=== PATIENT | male | born 1960 | race Caucasian/White ===

== ENCOUNTER 2022-04-04 06:18 | Observation (INO) ==
[~2022-04-04 06:18] MED LIST: ALVIMOPAN 12 MG CAPSULE PO ONE; SODIUM PHOSPHATE ENEMA 133 ML BOTTLE RECTAL ONE; cefTRIAXone 1,000 MG in SODIUM CHLORIDE 0.9% 100 ML IV ONE
[2022-04-04] MEDS ORDERED: ROPIVACAINE 0.5% 30 ML VIAL ONE (06:21)
[2022-04-04] MEDS: LACTATED RINGERS 1,000 ML IV SCH ×2 (07:00→11:37)
[2022-04-04] MEDS ORDERED: FAMOTIDINE 20 MG/2 ML VIAL IV ONE (07:32)
[2022-04-04] MEDS ORDERED: GLYCOPYRROLATE 0.4 MG/2 ML VIAL ONE ×2 (11:06→11:53)
[2022-04-04] MEDS ORDERED: NEOSTIGMINE 10 MG/10 ML VIAL ONE (11:06)
[2022-04-04] MEDS ORDERED: ONDANSETRON 4 MG/2 ML VIAL IV PRN ×2 (11:08→11:49)
[2022-04-04 11:50] LABS: Bilirubin,Urine Negative (Negative); Blood, Urine Negative (Negative); Glucose,Urine (UA) Negative (Negative); Ketones,Urine Negative (Negative); Mucus,Urine Occasional /LPF (Occasional); Nitrite,Urine Negative (Negative); Protein,Urine Negative (Negative); RBC,Urine 2 /HPF (0-4); Urine Appearance CLEAR (Clear); Urine Color Straw (Yellow); Urine Specific Gravity 1.014 (1.001-1.035); Urine Urobilinogen < 2.0 eU/dL (<2.0)
[2022-04-04] MEDS: HYDROmorphone 1 MG/1 ML SYRINGE IV PRN ×7 (11:50→21:31)
[2022-04-04] MEDS ORDERED: MIDAZOLAM 2 MG/2 ML VIAL ONE (11:52)
[2022-04-04] MEDS ORDERED: LIDOCAINE 2% 5 ML VIAL ONE (11:52)
[2022-04-04] MEDS ORDERED: propofoL 200 MG/20 ML VIAL IV ONE (11:52)
[2022-04-04] MEDS ORDERED: fentaNYL 250 MCG/5 ML VIAL ONE (11:52)
[2022-04-04] MEDS ORDERED: LACTATED RINGERS 1,000 ML IV ONE (11:53)
[2022-04-04] MEDS ORDERED: ACETAMINOPHEN INJ 1,000 MG/100 ML VIAL IV ONE (11:53)
[2022-04-04] MEDS ORDERED: SEVOFLURANE 1 UNIT/15 MINUTE INH ONE (11:53)
[2022-04-04] MEDS ORDERED: ROCURONIUM 50 MG/5 ML VIAL IV ONE (11:53)
[2022-04-04] MEDS ORDERED: ONDANSETRON 4 MG/2 ML VIAL ONE (11:53)
[2022-04-04] MEDS ORDERED: MEPERIDINE 25 MG/1 ML VIAL ONE (11:56)
[2022-04-04] MEDS ORDERED: MEPERIDINE 25 MG/1 ML VIAL IV PRN (12:00)
[2022-04-04] MEDS ORDERED: PROMETHAZINE 25 MG/1 ML VIAL ONE (12:14)
[2022-04-04] MEDS ORDERED: PROMETHAZINE INJ 25 MG in SODIUM CHLORIDE 0.9% 50 ML IV PRN (12:20)
[2022-04-04] MEDS: SODIUM CHLORIDE 0.9% 1,000 ML IV SCH ×2 (13:58→18:09)
[2022-04-04] MEDS ORDERED: hydrALAZINE 20 MG/1 ML VIAL IV PRN (15:25)
[2022-04-04] MEDS: oxyCODONE/ACETAMINOPHEN 5-325 MG TABLET PO PRN ×2 (15:41→19:11)
[2022-04-04] MEDS: OXYBUTYNIN XL 10 MG TABLET PO SCH (18:05)
[2022-04-04] MEDS: ALVIMOPAN 12 MG CAPSULE PO SCH (21:10)
[2022-04-05] MEDS: HYDROmorphone 1 MG/1 ML SYRINGE IV PRN ×3 (02:01→09:28)
[2022-04-05] MEDS: SODIUM CHLORIDE 0.9% 1,000 ML IV SCH ×2 (02:45→08:56)
[2022-04-05 06:18] LABS: Basophils # 0.1 10*3/uL (0.0-0.2); Basophils % 0.8 % (0.0-0.8); Eosinophils # 0.1 10*3/uL (0.0-0.87); Eosinophils % 1.1 % (0.00-10.9); Hematocrit 39.1 VOL% (42.0-52.0); Hemoglobin 12.5 GM/DL (14.0-18.0); Immature Granulocytes % 0.4 %; Immature Granulocytes Absolute 0.03 #; Lymphocytes # 0.6 10*3/uL (1.4-4.0); Lymphocytes % 7.8 % (21.2-54.2); Mean Corpuscular Volume 92.4 FL (87-102); Mean Platelet Volume 10.8 FL (9.6-12.0); Monocytes % 13.2 % (1.7-12.7); Neutrophils % 76.7 % (38.7-73.9); Platelet Count 147 T/CUMM (130-400); Red Blood Count 4.23 MC/CUMM (3.8-5.5); Red Cell Distribution Width 13.1 % (9.3-17.3); White Blood Count 7.4 T/CUMM (4-12)
[2022-04-05 06:34] LABS: Calcium 8.7 MG/DL (8.5-10.1); Osmolality,Calculated 287.1 MOS/KG (273-304); Potassium 4.2 MMOL/L (3.5-5.1)
[2022-04-05] MEDS: LACTATED RINGERS 1,000 ML IV SCH (08:55)
[2022-04-05] MEDS ORDERED: lisinopriL 20 MG TABLET PO SCH (09:00)
[2022-04-05] MEDS ORDERED: LEFLUNOMIDE 10 MG TABLET PO SCH (09:00)
[2022-04-05] MEDS ORDERED: sitaGLIPtin 25 MG TABLET PO SCH (09:00)
[2022-04-05] MEDS ORDERED: amLODIPine 10 MG TABLET PO SCH (09:00)
[2022-04-05] MEDS ORDERED: SPIRONOLACTONE 25 MG TABLET PO SCH (09:00)
[2022-04-05] MEDS ORDERED: TAMSULOSIN 0.4 MG CAPSULE PO SCH (09:00)
[2022-04-05] MEDS ORDERED: ATORVASTATIN 80 MG TABLET PO SCH (09:00)
[2022-04-05] MEDS: OXYBUTYNIN XL 10 MG TABLET PO SCH (09:05)
[2022-04-05] MEDS: ALVIMOPAN 12 MG CAPSULE PO SCH (09:06)
[2022-04-05 10:58] VITALS: BP 149/79
== END 2022-04-05 11:56 | disposition home or self-care (01) ==
LOC: INTOOBSV 06:18 → N.SDSINP 06:18 → N.3E 13:14
PROVIDERS: ADMIT Urology; ATTEND Urology